=== PATIENT | male | born 1975 | race Caucasian/White ===

== ENCOUNTER 2022-12-21 14:47 | Emergency (ER) | payer MEDICAID, SELFPAY ==
[2022-12-21 14:49] VITALS: BP 166/115; PULSE 102; RESP 16; TEMP 37.4; O2SAT 96; BMI 26.6
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
--- NOTE | 2022-12-21 15:05 | PC.NURSE ---
DR CEDENO AT BEDSIDE
[2022-12-21 15:15] VITALS: BP 147/94; PULSE 85; RESP 18; TEMP 37; O2SAT 95
== END 2022-12-21 15:15 | disposition home or self-care (01) ==
PROVIDERS: Emergency Provider Emergency Medicine
DX: S60.511A Abrasion of right hand, initial encounter (principal); S60.512A Abrasion of left hand, initial encounter; W26.0XXA Contact with knife, initial encounter; F17.210 Nicotine dependence, cigarettes, uncomplicated
CPT/HCPCS: 99282; 99283